=== PATIENT | female | born 1950 | race Caucasian/White ===

== ENCOUNTER 2017-05-16 20:26 | Emergency (ER) | payer OTHER ==
[~2017-05-16] VITALS: Ht 167.6 cm; Wt 92.1 kg
[~2017-05-16 20:26] MED LIST: ADVAIR HFA120 INHALA IH; ASCORBIC ACID500 M3 PO; ASMANEX TW200 MICRO1 IH; ATIVAN1 MG PO; AZITHROMYCIN500 M1 PO; NORVASC2.5 MG PO; OMEPRAZOLE40 M1 PO; PREDNISONE10 MG PO; PREDNISONE20 MG PO; SERTRALINE HCL100 MG PO; SPIRIVA RESPIMAT4 GM IH; VENTOLIN HFA18 GM IH; VITAMIN B-122500 MCG SL; ZOLOFT50 MG PO
[2017-05-16] MEDS ORDERED: FLEXERIL10 MG PO (22:32)
[2017-05-16] MEDS ORDERED: NAPROSYN500 MG PO (22:32)
[2017-05-16 22:44] VITALS: BP 149/72
== END 2017-05-16 22:46 | disposition home or self-care (01) ==
LOC: EME 20:26
DX: S06.0X0A Concussion without loss of consciousness, initial encounter (principal); W01.10XA Fall on same level from slipping, tripping and stumbling with subsequent striking against unspecified object, initial encounter; R29.6 Repeated falls; J44.9 Chronic obstructive pulmonary disease, unspecified; F41.9 Anxiety disorder, unspecified; Z88.8 Allergy status to other drugs, medicaments and biological substances
CPT/HCPCS: 70450; 72125; 99281; 99284

== ENCOUNTER 2017-09-07 20:25 | Emergency (ER) | payer OTHER ==
[~2017-09-07] VITALS: Ht 170.2 cm; Wt 88.6 kg
[~2017-09-07 20:25] MED LIST changes: +FLEXERIL10 MG PO; +NAPROSYN500 MG PO
[2017-09-07 21:03] LABS: HEMATOCRIT 41.5 % (36.0-46.0); HEMOGLOBIN 13.7 G/DL (11.9-15.5); MCH 31.4 PG (29.0-34.0); PLATELET COUNT 206 K/uL (156-360); RBC DIS.WIDTH-CV 12.2 % (11.8-14.6); RBC DIS.WIDTH-SD 42.6 % (39-53); RED BLOOD COUNT 4.37 M/uL (3.80-5.20); WHITE BLOOD COUNT 5.9 K/uL (4.1-10.2)
[2017-09-07 21:15] LABS: CHLORIDE 106 mEq/L (99-109); POTASSIUM 4.1 mEq/L (3.7-5.4); SODIUM 140 mEq/L (136-147)
[2017-09-07 21:17] LABS: GLUCOSE 105 mg/dL (70-99)
[2017-09-07 21:21] LABS: CREATININE 0.9 mg/dL (0.6-1.3); GFR ESTIMATE (CALCULATED) > 59 mL/min/
[2017-09-07 21:22] LABS: UREA NITROGEN (BUN) 12 mg/dL (9-23)
[2017-09-07 21:26] LABS: TROP-I INTERPRETATION NEGATIVE; TROPONIN-I < 0.01 ng/mL (0.0-0.30)
[2017-09-08 01:15] VITALS: BP 143/89
== END 2017-09-08 00:50 | disposition home or self-care (01) ==
LOC: EME 20:25
DX: J20.9 Acute bronchitis, unspecified (principal); J44.0 Chronic obstructive pulmonary disease with (acute) lower respiratory infection; F41.9 Anxiety disorder, unspecified
CPT/HCPCS: 71046; 80048; 84484; 85027; 93005; 99281; 99283